=== PATIENT | female | born 1960 | race Caucasian/White ===

== ENCOUNTER 2016-07-05 10:57 | Day surgery (SDC) | payer OTHER ==
[~2016-07-05] VITALS: Ht 171.4 cm; Wt 85.3 kg
[~2016-07-05 10:57] MED LIST: AMITRIPTYLINE100 MG PO; BAYER CHEWABLE81 MG PO; CENTRUM SILVER1 EAC3 PO; ELAVIL PO; FOLBIC RF TABL1 EACH PO; LEXAPRO10 MG PO; LIPITOR80 MG PO; METOPROLOL SUC100 MG PO; MOBIC15 MG PO; MULTI-DAY VITA1 EACH PO; MULTIPLE VITAM1 EAC4 PO; NORVASC5 MG PO; OMEPRAZOLE20 MG PO; OMEPRAZOLE40 M1; TOPROL PO; TRAMADOL HCL50 MG PO; TYLENOL WITH C1 EACH PO; ULTRAM50 MG PO; XANAX0.5 MG PO; ZOFRAN4 MG PO
== END 2016-07-05 13:30 | disposition home or self-care (01) ==
LOC: PAIN 10:57 → SDC 11:30 → PAIN 11:30
DX: M47.896 Other spondylosis, lumbar region (principal); M54.5 Low back pain; F41.1 Generalized anxiety disorder; M79.7 Fibromyalgia; M53.3 Sacrococcygeal disorders, not elsewhere classified; M47.812 Spondylosis without myelopathy or radiculopathy, cervical region; M12.88 Other specific arthropathies, not elsewhere classified, other specified site; K21.9 Gastro-esophageal reflux disease without esophagitis; I10 Essential (primary) hypertension; F17.200 Nicotine dependence, unspecified, uncomplicated
CPT/HCPCS: J1030; J2250; J3010; S0020

== ENCOUNTER 2016-07-12 10:48 | Day surgery (SDC) | payer OTHER ==
[~2016-07-12] VITALS: Ht 171.4 cm; Wt 85.3 kg
== END 2016-07-12 13:30 | disposition home or self-care (01) ==
LOC: PAIN 10:48 → SDC 11:30 → PAIN 11:30
DX: M47.896 Other spondylosis, lumbar region (principal); M54.5 Low back pain; F41.1 Generalized anxiety disorder; M79.7 Fibromyalgia; M79.1 Myalgia; K21.9 Gastro-esophageal reflux disease without esophagitis; I10 Essential (primary) hypertension
CPT/HCPCS: J1030; J2250; J3010; S0020

== ENCOUNTER 2017-02-20 08:04 | Day surgery (SDC) | payer OTHER ==
[~2017-02-20] VITALS: Ht 171.4 cm; Wt 85.3 kg
[~2017-02-20 08:04] MED LIST changes: -LEXAPRO10 MG PO; +LEXAPRO20 MG PO; +LORCET 5-325 M1 EACH PO
== END 2017-02-20 09:41 | disposition home or self-care (01) ==
LOC: PAIN 08:04 → SDC 08:30 → PAIN 08:30
DX: M47.812 Spondylosis without myelopathy or radiculopathy, cervical region (principal); M54.2 Cervicalgia; G89.29 Other chronic pain; M79.7 Fibromyalgia; M47.816 Spondylosis without myelopathy or radiculopathy, lumbar region; M06.9 Rheumatoid arthritis, unspecified; F41.9 Anxiety disorder, unspecified; I10 Essential (primary) hypertension; K21.9 Gastro-esophageal reflux disease without esophagitis; F17.200 Nicotine dependence, unspecified, uncomplicated; Z79.891 Long term (current) use of opiate analgesic
CPT/HCPCS: J1030; J2250; J3010; S0020

== ENCOUNTER 2017-02-27 08:00 | Day surgery (SDC) | payer OTHER | END 2017-02-27 10:09 | disposition home or self-care (01) | LOC: PAIN 08:00 → SDC 08:30 → PAIN 08:30 | DX: M47.812 Spondylosis without myelopathy or radiculopathy, cervical region (principal); M54.2 Cervicalgia; G89.29 Other chronic pain; M50.31 Other cervical disc degeneration, high cervical region; M47.816 Spondylosis without myelopathy or radiculopathy, lumbar region; M79.7 Fibromyalgia; M06.9 Rheumatoid arthritis, unspecified; K21.9 Gastro-esophageal reflux disease without esophagitis; I10 Essential (primary) hypertension; F41.9 Anxiety disorder, unspecified; F17.200 Nicotine dependence, unspecified, uncomplicated | CPT/HCPCS: J1030; J2250; J3010; S0020 ==

== ENCOUNTER 2017-06-13 14:04 | Emergency (ER) | payer OTHER ==
[~2017-06-13] VITALS: Ht 172.7 cm; Wt 90.9 kg
[2017-06-13] MEDS ORDERED: MOTRIN600 MG PO (18:29)
[2017-06-13] MEDS ORDERED: FLEXERIL10 MG PO (18:29)
[2017-06-13] MEDS ORDERED: NORCO 5/3251 TABLET PO (18:29)
[2017-06-13 18:37] VITALS: BP 148/69
== END 2017-06-13 18:49 | disposition home or self-care (01) ==
LOC: EME 14:04
DX: S39.012A Strain of muscle, fascia and tendon of lower back, initial encounter (principal); W01.0XXA Fall on same level from slipping, tripping and stumbling without subsequent striking against object, initial encounter; Y92.007 Garden or yard of unspecified non-institutional (private) residence as the place of occurrence of the external cause
CPT/HCPCS: 72110; 99281; 99284